=== PATIENT | female | born 1940 | race Caucasian/White ===

== ENCOUNTER 2019-04-18 15:17 | Emergency (ER) | payer MEDICARE ==
[~2019-04-18] VITALS: Ht 166.4 cm; Wt 62.3 kg
[2019-04-18 15:28] VITALS: BP 135/77; Ht 166.4 cm; Wt 62.3 kg
[2019-04-18] MEDS ORDERED: LYRICA100 MG PO (15:35)
[2019-04-18] MEDS ORDERED: NEURONTIN 300300 MG PO (15:36)
[2019-04-18] MEDS ORDERED: BAYER CHEWABLE81 MG PO (15:40)
[2019-04-18 16:10] LABS: BASOPHILS 0.2 % (0-2); EOSINOPHILS 1.4 % (0-7); HEMATOCRIT 44.4 % (36.0-48.0); HEMOGLOBIN 14.3 g/dL (12-16); IMMATURE GRANULOCYTES 0.2 % (0-5); LYMPHOCYTES 33.2 % (15-50); MCH 30.6 pg (26.0-34.0); MCHC 32.2 g/dL (31.0-37.0); MCV 95.1 fL (80.0-100.0); MEAN PLATELET VOLUME 11.2 fL (7.4-10.4); MONOCYTES 8.6 % (2-11); NEUTROPHILS 56.4 % (40-80); PLATELET COUNT 203 10x3/uL (130-400); RBC 4.67 10x6/uL (4.00-5.40); RDW 13.8 % (11.5-14.5); WBC 5.8 10x3/uL (4.8-10.8)
[2019-04-18 16:19] LABS: APTT 32.6 SECONDS (22.8-39.4); INR 0.99 (0.85-1.17); PROTIME 12.6 SECONDS (11.6-15.0)
[2019-04-18 16:21] LABS: ANION GAP 8.5 mmol/L (8-16); CALCIUM 8.6 mg/dL (8.5-10.1); CARBON DIOXIDE 33.9 mmol/L (21.0-32.0); CREATININE - SERUM 0.9 mg/dL (0.6-1.3); POTASSIUM - SERUM 4.4 mmol/L (3.5-5.1)
[2019-04-18 16:26] LABS: ALBUMIN 3.5 g/dL (3.4-5.0); BILIRUBIN - TOTAL 0.27 mg/dL (0.2-1.3); MAGNESIUM - SERUM 2.3 mg/dL (1.8-2.4); PROTEIN - SERUM 6.7 g/dL (6.4-8.2)
== END 2019-04-18 17:50 | disposition home or self-care (01) ==
LOC: D.ER 15:17
PROVIDERS: Family Medicine
DX: G51.0 Bell's palsy (principal); G50.0 Trigeminal neuralgia